=== PATIENT | female | born 1990 | race Caucasian/White ===

== ENCOUNTER 2016-07-27 07:46 | Emergency (ER) | payer MEDICAID, OTHER ==
[2016-07-27] MEDS ORDERED: IOPAMIDOL 370 (76%) IV.SOLN 150 ML IV ONE (07:47)
[2016-07-27 08:18] LABS: URINE BILIRUBIN NEGATIVE (NEGATIVE); URINE BLOOD TRACE (NEGATIVE); URINE GLUCOSE (UA) NEGATIVE (NEGATIVE); URINE LEUKOCYTE ESTERASE 1+ (NEGATIVE); URINE NITRITE NEGATIVE (NEGATIVE); URINE PROTEIN TRACE (NEGATIVE); URINE UROBILINOGEN NORMAL (0-1 mg/dl)
[2016-07-27 08:19] LABS: HCG,QUALITATIVE URINE NEGATIVE
[2016-07-27 08:20] LABS: URINE APPEARANCE HAZY; URINE COLOR YELLOW
[2016-07-27 08:31] LABS: URINE BACTERIA RARE; URINE RBC 0-2 /hpf; URINE WBC 0-1 /hpf
[2016-07-27 09:12] LABS: ABSOLUTE NEUTROPHIL COUNT 3.2 K/mm3 (1.8-7.7); BASO # 0.1 K/mm3 (0.0-0.2); BASO % 1.1 % (0.2-1.0); EOS # 0.4 (0.0-0.5); EOS % 6.3 % (0.9-2.9); HEMATOCRIT 39.9 % (37.0-47.0); HEMOGLOBIN 13.2 gm/l (12.0-16.0); IMM NEUT% 0.2 % (0-1); LYMPH % 32.8 % (15-45); MEAN CELL VOLUME 90.9 fl (81.0-99.0); MEAN CORPUSCULAR HEMOGLOBIN 30.1 pg (27.0-31.0); MEAN CORPUSCULAR HGB CONC 33.1 g/dl (33.0-37.0); MEAN PLATELET VOLUME 10.8 fl (7.4-10.4); MONO # 0.5 (0.0-0.8); MONO % 7.5 % (4-12); NEUT % 52.1 % (43-75); PLATELET COUNT 185 K/mm3 (130-400); RED CELL DISTRIBUTION WIDTH 11.9 % (11.5-14.5)
[2016-07-27 09:25] LABS: CALCIUM 9.2 mg/dL (8.6-10.3)
--- NOTE | 2016-07-27 09:39 | CT ---
EXAMINATION: Contrast enhanced CT scan of the abdomen and pelvis. CLINICAL INDICATION: Hematuria. COMPARISON: None TECHNIQUE: Oral contrast: None Following uneventful administration of 100 mL of Isovue 370, intravenously axial images were acquired from just above the domes of the diaphragm to the iliac crest. A CT scan of the pelvis was also obtained from the iliac crest to the initial tuberosities. Stacked axial, sagittal, and coronal images were reviewed. Findings: Abdomen CT: (Contrast-enhanced): The lung bases are clear and are without mass or pleural effusion. The liver is unremarkable. The gallbladder is within normal limits. There is no evidence of biliary obstruction. The spleen size and attenuation are within normal limits. The pancreas is normal in size and contours. No inflammatory stranding is identified. The pancreatic duct is unremarkable. The adrenals are unremarkable. The kidneys are without mass or hydronephrosis. No nephrolithiasis is identified. The abdominal aorta unremarkable. There is no retroperitoneal adenopathy identified. The stomach is unremarkable. The visualized segments of small and large bowel are within normal limits. The osseous structures exhibit no displaced fracture. No lytic or blastic lesions are identified. Pelvic CT: (Contrast -enhanced): The distal ureters and bladder are unremarkable. The uterus is anteverted. There is a centrally located intrauterine device. There is approximately 1.8 cm right ovarian cyst. No gross complicated lesions are identified. There is no free fluid in pelvis. There is an apparent left inguinal hernia. Prominent soft tissue is seen in this distribution which may contain components of the left uterine ligament. The distal abdominal aorta and iliac vessels are within normal limits. The visualized segments of small and large bowel are unremarkable. The appendix is unremarkable. 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 There is no listhesis. The remainder of the overlying soft tissues are unremarkable. IMPRESSION: 1. Left inguinal hernia. There are contents suggestive of components of the left uterine ligament or possible prominent lymph nodes. No gross inflammatory stranding is appreciated. 2. Currently unremarkable kidneys ureter and bladder. 3. 1.8 cm right ovarian cyst. The findings were uploaded to the electronic medical record for review at approximately 9:40 AM 07/27/2016
[2016-07-28 15:45] LABS: CHLAMYDIA BD Negative (Negative); N.GONORRHOEAE BD Negative (Negative); SOURCE Urine (())
== END 2016-07-27 10:09 | disposition home or self-care (01) ==
LOC: ED 07:46
DX: R31.9 Hematuria, unspecified (principal); K40.90 Unilateral inguinal hernia, without obstruction or gangrene, not specified as recurrent; J45.909 Unspecified asthma, uncomplicated
CPT/HCPCS: 87491; 87591; 81025; 86060; 85025; 87086; 80048; 81001; 74177; 99284 ×2; Q9967